=== PATIENT | female | born 1995 | race Caucasian/White ===

== ENCOUNTER 2016-11-15 17:30 | Emergency (ER) | payer OTHER ==
[~2016-11-15] VITALS: Ht 127 cm; Wt 54.0 kg
[~2016-11-15 17:30] MED LIST: AZIT250T94 PO; IBUP-1542 PO
[2016-11-15 17:35] VITALS: Ht 127 cm; Wt 54.0 kg
[2016-11-15 18:09] LABS: URINE BLOOD (Dip) POC Trace-intact (NEGATIVE)
--- NOTE | 2016-11-15 18:28 | RADRPT ---
PROCEDURE: US OB. CLINICAL INDICATION: Pelvic pain TECHNIQUE: Multiple sonographic images of the pelvis and gravid uterus were obtained. The images were reviewed on a PACS workstation. COMPARISON: No prior studies are available for comparison. FINDINGS: There is a single viable intrauterine gestation. Cardiac activity is present with 144 beats per min alturas. There is a breech/variable presentation. The placenta is anterior. There is no evidence for an abruption or placenta previa. There is a normal amount of amniotic fluid with a MVP = 3.6 cm. Measurements were made in order to determine age. The results are as follows: BPD =4.5 cm HC =16.8 cm AC =16.2 cm FL =3.2 cm Estimated gestational age of approximately 20 weeks and 1 day based on ultrasound measurements. The estimated date of delivery is 04/03/17, based on ultrasound measurements. The EFW = 361 g. The right ovary was not seen. The left ovary has normal Doppler flow and is normal in size. There is a small left paraovarian simple cyst measuring 1.5 cm. RPTAT: AA IMPRESSION: Single viable intrauterine gestation of approximately 20 weeks and 1 day based on ultrasound measur ements. .Ab Tran MD, Date Time Electronically viewed and signed by .Ab Tran MD, on 11/15/2016 18:28 .S/
[2016-11-15] MEDS ORDERED: CEPH-443 PO (18:34)
[2016-11-15] MEDS ORDERED: ACET500C5 PO (18:34)
--- NOTE | 2016-11-15 18:54 | ERD ---
ER Documentation Chief Complaint Date/Time DATE: 11/15/16 TIME: 18:50 Chief Complaint pelvic pain x 3 days ; LMP 08/20/16 HPI 21-year-old female who is approximately 16 weeks is complaining of pelvic pain 2 days. Patient stated that the pain comes and goes, occurs every hour, lasting about 15 minutes each. The pain is dull. She also has dysuria. Denies fever or chills. Denies vaginal bleeding. Denies vomiting or diarrhea. Patient is , LMP 08/20/2016. ROS All systems reviewed and are negative except as per history of present illness. Medications Home Meds Active Scripts Acetaminophen* (Tylophen*) 500 Mg Capsule, 1 CAP PO Q6H Y for PAIN AND OR ELEVATED TEMP, #20 CAP Prov:LUIS F SEGURA. CHOIR MEMBER 11/15/16 Cephalexin* (Keflex*) 500 Mg Capsule, 500 MG PO BID for 7 Days, CAP Prov:DEANNA SEGURAEN X. CHOIR MEMBER 11/15/16 Allergies Allergies: Coded Allergies: No Known Drug Allergies (Verified Allergy, Unknown, 11/15/16) PMhx/Soc Medical and Surgical Hx: pt denies Medical Hx, pt denies Surgical Hx Hx Alcohol Use: No Hx Substance Use: No Smoking Status: Never smoker Physical Exam Vitals Vital Signs Date Time Temp Pulse Resp B/P Pulse Ox O2 Delivery O2 Flow Rate FiO2 11/15/16 17:35 98.3 74 19 108/63 98 Physical Exam General: Well-developed, well-nourished, conscious and coherent, in no distress Skin: Warm and dry without rash, good texture and turgor Head: Normocephalic without evidence of trauma Eyes: Sclera and conjunctivae normal; pupils equal, round, and reactive to light; extraocular movements are intact Chest: Normal AP diameter. Good expansion without retractions. Nontender. Lungs are clear to auscultate bilaterally with good tidal volume Heart: Regular rate and rhythm. No murmur, rub, or gallops heard Abdomen: Soft and nontender without masses, guarding, or rebound. Bowel sounds are active. No hepatosplenomegaly Back: Without spinal or CVA tenderness Pelvis: Suprapubic tenderness. Extremities: Full range of motion. Good strength bilaterally. No clubbing, cyanosis, or edema. Peripheral pulses are intact. Sensation intact Neuro: Alert and oriented 4, GCS 15. Cranial nerves grossly intact. Motor and sensory exams nonfocal. Moves all extremities. Speech clear. Gait normal Results 24 hrs Laboratory Tests Test 11/15/16 18:15 Bedside Urine pH (LAB) 6.0 Bedside Urine Protein (LAB) Negative Bedside Urine Glucose (UA) Negative Bedside Urine Ketones (LAB) Negative Bedside Urine Blood Trace-intact Bedside Urine Nitrite (LAB) Negative Bedside Urine Leukocyte Esterase (L Trace PROCEDURE: US OB. CLINICAL INDICATION: Pelvic pain TECHNIQUE: Multiple sonographic images of the pelvis and gravid uterus were obtained. The images were reviewed on a PACS workstation. COMPARISON: No prior studies are available for comparison. FINDINGS: There is a single viable intrauterine gestation. Cardiac activity is present with 144 beats per minute. There is a breech/variable presentation. The placenta is anterior. There is no evidence for an abruption or placenta previa. There is a normal amount of amniotic fluid with a MVP = 3.6 cm. Measurements were made in order to determine age. The results are as follows: BPD = 4.5 cm HC = 16.8 cm AC = 16.2 cm FL = 3.2 cm Estimated gestational age of approximately 20 weeks and 1 day based on ultrasound measurements. The estimated date of delivery is 04/03/17, based on ultrasound measurements. The EFW = 361 g. The right ovary was not seen. The left ovary has normal Doppler flow and is normal in size. There is a small left paraovarian simple cyst measuring 1.5 cm. RPTAT: AA IMPRESSION: Single viable intrauterine gestation of approximately 20 weeks and 1 day based on ultrasound measurements. .Ab Tran MD, Date Time Electronically viewed and signed by .Ab Tran MD, on 11/15/2016 18: 28 .S/ CC: LUIS F SGEURA CHOIR MEMBER Procedures/MDM Well-appearing 21-year-old female presented ED was pelvic pain 2 days. Ultrasound showed a normal intrauterine with approximately age of 20 weeks. Patient reports dysuria, UA showed trace leukocyte. I suspect patient has urinary tract infection. Her pelvic pain is likely due to either urinary tract infection or round ligament pain, or combination of both. Patient appears well, stable for discharge and outpatient management. Medical decision making shared with patient and family. Education provided to patient and family. Patient and family expressed understanding of the plan. Medications on discharge: Tylenol, Keflex. Follow-up: Primary care provider in 2-3 days or return to ED if worse. Disclaimer: Inadvertent spelling and grammatical errors are likely due to EHR/ dictation software use and do not reflect on the overall quality of patient care. Also, please note that the electronic time recorded on this note does not necessarily reflect the actual time of the patient encounter. Departure Diagnosis: Primary Impression: Pelvic pain affecting Additional Impression: UTI (urinary tract infection) during Trimester: second trimester Qualified Code: O23.42 - UTI (urinary tract infection) during , second trimester Condition: Good Patient Instructions: Understanding Urinary Tract Infections (UTIs), Pelvic Pain In : Unclear (2-3 Trimester) [facility] Usted se villegas hecho un examen mdico de control que le indica que no est en katerina condicin que requiera tratamiento urgente en el Departamento de Emergencia. Un estudio ms profundo y el tratamiento de barnhart condicin pueden esperar sin ningn riesgo hasta que usted sea atendida/o en el consultorio de barnhart mdico o katerina cl kyle. Es responsabilidad suya arreglar katerina sterling para el seguimiento del zoë. MANEJO DE CONDICIONES NO URGENTES EN EL FUTURO 1) Si usted tiene un mdico de atencin primaria: Usted debera llamar a barnhart mdico de atencin primaria antes de venir al departamento de emergencia. Despus de las horas de consultorio, barnhart doctor o barnhart asociado/a est disponible por telfono. El mdico o enfermero de andria en el servicio telefnico puede asesorarle por nader medio para atender el problema, o zoë contrario se puede programar katerina sterling. 2) Si usted no tiene un mdico de atencin primaria: Llame al mdico o clnica de referencia que aparece abajo kamla las horas de consultorio para hacer katerina sterling para que le vean. CLINICAS: [facility] [phone] [facility] [phone] [address] [facility] [facility] [phone] [facility]. [facility] [phone] [facility]. [place] [address] [phone] [facility] [phone] EMILY CORNELIUS NEUROLOGY TE[place] [phone] [facility] [address] [place] [address] OFFICE FAX , [place] [address] [place], [place] [phone] DR. INFANTE CURTISS [address] [place] [address] DR SROTO, [facility] [phone] [facility], [address], [facility] [phone] [facility] [address] [place] [address] CLINICA LACLEDE [address] [place], [place] [phone] [facility] [id number] [address] [place] [id number] [address] MARTIN, [place] [address] [facility] [address], [facility] [phone] [address]GELICA [address] [address] [place] [address] Additional Instructions: Call your primary care doctor TOMORROW for an appointment during the next 2-3 days.See the doctor sooner or return here if your condition worsens before your appointment time. LUIS F SEGURA NP Nov 15, 2016 18:54
== END 2016-11-15 18:49 | disposition home or self-care (01) ==
LOC: EDBD 17:30 → MERGE 17:30 → FTE 17:30
DX: O26.892 Other specified pregnancy related conditions, second trimester (principal); O23.42 Unspecified infection of urinary tract in pregnancy, second trimester; R10.2 Pelvic and perineal pain; Z3A.20 20 weeks gestation of pregnancy
CPT/HCPCS: 76805; 81003; Z7502

== ENCOUNTER 2017-08-20 02:19 | Emergency (ER) | END 2017-08-20 04:14 | disposition home or self-care (01) ==